=== PATIENT | female | born 1990 | race Hispanic/Latino ===

== ENCOUNTER 2017-01-02 01:19 | Emergency (ER) | payer OTHER ==
[2017-01-02 01:29] VITALS: BP 124/73
[2017-01-02] MEDS ORDERED: ZOFR20TA PO (01:31)
[2017-01-02] MEDS ORDERED: IMOD2TAB16 PO (01:31)
== END 2017-01-02 05:23 | disposition left against medical advice (07) ==
LOC: M ED 03:18
DX: R10.9 Unspecified abdominal pain (principal); Z53.21 Procedure and treatment not carried out due to patient leaving prior to being seen by health care provider

== ENCOUNTER 2017-10-18 19:45 | Inpatient (IN) | payer OTHER ==
[2017-10-18] MEDS ORDERED: OXYTOCIN 30 UNITS IN 0.9% NaCl 500ML IV BAG (J2590) As Ordered (20:38)
[2017-10-18 20:48] LABS: HEMATOCRIT 37.4 % (36.0-47.0); HEMOGLOBIN 11.3 g/dl (12.0-16.0); MEAN CORPUSCULAR HEMOGLOBIN 23.3 pg (27.0-33.0); MEAN CORPUSCULAR HGB CONC 30.2 g/dl (32.0-36.5); MEAN CORPUSCULAR VOLUME 77.3 fl (80.0-96.0); PLATELET COUNT, AUTOMATED 221 10^3/uL (150-450); RED BLOOD COUNT 4.84 10^6/uL (4.00-5.40); RED CELL DISTRIBUTION WIDTH 15.2 % (11.5-14.5); WHITE BLOOD COUNT 12.3 10^3/uL (4.0-10.0)
[2017-10-18] MEDS: PENICILLIN G POTASSIUM IV 5 MU in D5W MINI-BAG PLUS 100 ML IV (20:56)
[2017-10-18] MEDS: LACTATED RINGER'S 1000 ML IV (21:04)
[2017-10-18] MEDS ORDERED: DIBUCAINE 1% OINTMENT 30GM TOP (22:00)
[2017-10-18] MEDS ORDERED: METHYLERGONOVINE MALEATE 0.2 MG TAB PO (22:00)
[2017-10-18] MEDS ORDERED: ANUSOL HC CREAM 30GM TOP (22:00)
[2017-10-18] MEDS ORDERED: MOM 30ML SUSPENSION UDC PO (22:00)
[2017-10-18 22:18] LABS: CORD GAS ABE A -3.8; CORD GAS ABE V -4.2; CORD GAS HCO3 A 20.7 MEQ/L; CORD GAS HCO3 V 20.6 MEQ/L; CORD GAS O2 SAT A 85.2 %; CORD GAS O2 SAT V 85.5 %; CORD GAS PCO2 A 36.6 mmHg; CORD GAS PCO2 V 37.4 mmHg; CORD GAS PH A 7.371 UNITS; CORD GAS PH V 7.359 UNITS; CORD GAS PO2 A 41.4 mmHg; CORD GAS PO2 V 42.1 mmHg; CORD GAS SBC V 20.7 MEQ/L; CORD GAS TCO2 A 21.9 MEQ/L; CORD GAS TCO2 V 21.8 MEQ/L
[2017-10-18] MEDS: OXYTOCIN INJ 10 UNITS/ML VIAL (J2590) IV (22:45)
[2017-10-18 23:16] LABS: BEDSIDE GLUCOSE 78 MG/DL (70-105)
[2017-10-18] MEDS: IBUPROFEN 800 MG TAB PO (23:28)
[2017-10-18 23:48] LABS: HBSAG L&D NEGATIVE (NEGATIVE)
[2017-10-19] MEDS ORDERED: PENICILLIN G POTASSIUM IV 2.5 MU in APPROPRIATE DILUENT 1 EA IV (01:00)
[2017-10-19] MEDS: OXYTOCIN INJ 10 UNITS/ML VIAL (J2590) IV (03:48)
[2017-10-19] MEDS: OXYTOCIN DRIP 30 UNITS in APPROPRIATE DILUENT 1 EA IV (03:48)
[2017-10-19] MEDS: LR 1,000 ML IV (03:48)
[2017-10-19 06:52] LABS: HEMATOCRIT 31.2 % (36.0-47.0); HEMOGLOBIN 9.8 g/dl (12.0-16.0); MEAN CORPUSCULAR HEMOGLOBIN 23.6 pg (27.0-33.0); MEAN CORPUSCULAR HGB CONC 31.4 g/dl (32.0-36.5); MEAN CORPUSCULAR VOLUME 75.2 fl (80.0-96.0); PLATELET COUNT, AUTOMATED 218 10^3/uL (150-450); RED BLOOD COUNT 4.15 10^6/uL (4.00-5.40); RED CELL DISTRIBUTION WIDTH 15.1 % (11.5-14.5); WHITE BLOOD COUNT 13.7 10^3/uL (4.0-10.0)
[2017-10-19] MEDS: RHOGAM 300 MCG (1500 IU) INJ (J2790) IM (07:26)
[2017-10-19] MEDS: MEASLES,MUMPS,RUBELLA VACCINE INJ (MMR-II) (90707) SC (07:26)
[2017-10-19] MEDS: PRENATAL VITAMINS CHEWABLE TABLET PO (08:11)
[2017-10-19] MEDS: IBUPROFEN 800 MG TAB PO ×2 (08:11→18:44)
[2017-10-19] MEDS: ACETAMINOPHEN 500 MG TAB PO ×3 (08:16→20:16)
[2017-10-19] MEDS: DOCUSATE SODIUM 100 MG CAP PO (20:16)
[2017-10-20] MEDS: IBUPROFEN 800 MG TAB PO ×2 (02:54→12:15)
[2017-10-20] MEDS: PRENATAL VITAMINS CHEWABLE TABLET PO (08:51)
== END 2017-10-20 13:25 | disposition home or self-care (01) | DRG 775 ==
LOC: M LDO 19:45 → M OBS 10-19 00:43 → M LDI 20:33
PROVIDERS: Obstetrics & Gynecology
PROC: 10E0XZZ Delivery of Products of Conception, External Approach (ICD-10-PCS; principal; 2017-10-18)
DX: O48.0 Post-term pregnancy (principal); Z37.0 Single live birth; Z3A.40 40 weeks gestation of pregnancy; O99.820 Streptococcus B carrier state complicating pregnancy; O77.0 Labor and delivery complicated by meconium in amniotic fluid; O24.420 Gestational diabetes mellitus in childbirth, diet controlled

== ENCOUNTER 2017-10-23 23:57 | Emergency (ER) | payer OTHER ==
[2017-10-24 02:39] LABS: HEMATOCRIT 33.9 % (36.0-47.0); HEMOGLOBIN 10.1 g/dl (12.0-16.0); MEAN CORPUSCULAR HEMOGLOBIN 23.2 pg (27.0-33.0); MEAN CORPUSCULAR HGB CONC 29.8 g/dl (32.0-36.5); MEAN CORPUSCULAR VOLUME 77.9 fl (80.0-96.0); PLATELET COUNT, AUTOMATED 245 10^3/uL (150-450); RED BLOOD COUNT 4.35 10^6/uL (4.00-5.40); RED CELL DISTRIBUTION WIDTH 15.9 % (11.5-14.5); WHITE BLOOD COUNT 7.6 10^3/uL (4.0-10.0)
[2017-10-24 02:46] LABS: PROTEIN, URINE AUTO NEGATIVE (NEGATIVE)
[2017-10-24 03:04] LABS: ALBUMIN 2.7 GM/DL (3.2-5.2); ALBUMIN/GLOBULIN RATIO 0.77 (1.00-1.93); ALKALINE PHOSPHATASE 130 U/L (45-117); ALT/SGPT 98 U/L (12-78); ANION GAP 8 MEQ/L (8-16); AST/SGOT 73 U/L (7-37); BILIRUBIN,DIRECT < 0.1 MG/DL (0.0-0.2); BILIRUBIN,TOTAL 0.3 MG/DL (0.2-1.0); BLOOD UREA NITROGEN 10 MG/DL (7-18); CALCIUM LEVEL 7.8 MG/DL (8.5-10.1); CARBON DIOXIDE LEVEL 26 MEQ/L (21-32); CHLORIDE LEVEL 109 MEQ/L (98-107); CREATININE FOR GFR 0.58 MG/DL (0.55-1.02); GLOMERULAR FILTRATION RATE > 60.0 (>60); GLUCOSE, FASTING 82 MG/DL (70-100); POTASSIUM SERUM 3.9 MEQ/L (3.5-5.1); SODIUM LEVEL 143 MEQ/L (136-145); TOTAL PROTEIN 6.2 GM/DL (6.4-8.2)
== END 2017-10-24 03:21 | disposition home or self-care (01) ==
LOC: M ED 23:57
DX: O90.89 Other complications of the puerperium, not elsewhere classified (principal); R60.0 Localized edema; E88.09 Other disorders of plasma-protein metabolism, not elsewhere classified
CPT/HCPCS: 80076